=== PATIENT | male | born 1975 | race Caucasian/White ===

== ENCOUNTER 2020-10-14 13:00 | Emergency (ER) | payer OTHER ==
[~2020-10-14] VITALS: Ht 188 cm; Wt 118.2 kg
[2020-10-14] MEDS ORDERED: fentaNYL PF VIAL 100 MCG/2 ML VIAL IVP ONE (13:15)
[2020-10-14] MEDS ORDERED: METOCLOPRAMIDE HCL 10 MG/2 ML VIAL. IVP ONE (13:15)
[2020-10-14] MEDS ORDERED: IV NORMAL SALINE 500ML BAG 500 ML IV ONE (13:15)
[2020-10-14] MEDS ORDERED: ASPIRIN CHEWABLE 81 MG TABLET. PO ONE (13:15)
[2020-10-14] MEDS ORDERED: ONDANSETRON PF 4 MG/2 ML VIAL. ONE (13:18)
[2020-10-14 13:29] LABS: BASO # 0.1 x10^3/uL (0.0-0.2); BASO % 1 % (0-3); EOS # 0.2 x10^3/uL (0.0-0.7); EOS % 1 % (0-3); HEMATOCRIT 49.7 % (39.0-53.0); HEMOGLOBIN 17.5 g/dL (13.0-17.5); LYMPH # 2.5 x10^3/uL (1.0-4.8); LYMPH % 20 % (24-48); MEAN CORPUSCULAR HEMOGLOBIN 31 pg (25-35); MEAN CORPUSCULAR HGB CONC 35 g/dL (31-37); MEAN CORPUSCULAR VOLUME 87 fL (79-100); MONO % 8 % (0-9); NEUT # 8.5 x10^3/uL (1.8-7.7); NEUT % 69 % (31-73); PLATELET COUNT 402 x10^3/uL (140-400); RED BLOOD COUNT 5.69 x10^6/uL (4.30-5.70); RED CELL DISTRIBUTION WIDTH 13.3 % (11.5-14.5); WHITE BLOOD COUNT 12.3 x10^3/uL (4.0-11.0)
[2020-10-14 13:38] LABS: PROTHROMBIN TIME PATIENT 13.1 SEC (11.7-14.0)
[2020-10-14 13:41] LABS: D-DIMER 0.48 ug/mlFEU (0.00-0.50)
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
[2020-10-14] MEDS ORDERED: MECLIZINE HCL 12.5 MG TABLET. PO ONE (13:45)
[2020-10-14] MEDS ORDERED: ONDANSETRON PF 4 MG/2 ML VIAL. IVP ONE (13:45)
--- NOTE | 2020-10-14 13:49 | RAD ---
AP chest. HISTORY: Chest pain AP view was taken of the chest. There is no pneumothorax or pleural effusion. There is elevation of t he right diaphragm. Heart is normal in size without heart failure. IMPRESSION: 1. Elevated right diaphragm. 2. No acute infiltrates. Electronically signed by: Kenny Wallis MD (10/14/2020 1:47 PM) [facility]
[2020-10-14 13:50] LABS: ALBUMIN 4.2 g/dL (3.4-5.0); ALBUMIN/GLOBULIN RATIO 1.2 (1.0-1.7); CALCIUM 9.3 mg/dL (8.5-10.1); CREATININE 1.2 mg/dL (0.7-1.3); GFR 66.1; MAGNESIUM 2.2 mg/dL (1.8-2.4); TOTAL BILIRUBIN 0.6 mg/dL (0.2-1.0); TOTAL PROTEIN 7.8 g/dL (6.4-8.2)
--- NOTE | 2020-10-14 14:04 | EKG ---
[facility] [address] [place] [address] Test Date: 2020-10-14 Test Time: 13:49:37 Pat Name: LINDA SEAMAN Department: Room: Gender: M Phytopathologist: : 1975 Requested By: BARBARA RODRIGUEZ Order Number: [id number] Reading MD: Measurements Intervals [place] Rate: 60 P: 46 [place]: 166 QRS: 39 QRSD: 96 T: 10 QT: 434 QTc: 434 Interpretive Statements SINUS RHYTHM NORMAL ECG RI6.01 Compared to ECG 10/14/2020 13:09:26 No significant changes
--- NOTE | 2020-10-14 14:04 | EKG ---
[facility] [address] [place] [address] Test Date: 2020-10-14 Test Time: 13:09:26 Pat Name: LINDA SEAMAN Department: Room: Gender: M Manager Fiber: : 1975 Requested By: BARBARA RODRIGUEZ Order Number: [id number] Reading MD: Measurements Intervals [place] Rate: 80 P: 34 [place]: 156 QRS: 45 QRSD: 92 T: 14 QT: 370 QTc: 430 Interpretive Statements SINUS RHYTHM NORMAL ECG RI6.01 No previous ECG available for comparison
[2020-10-14 14:40] LABS: POTASSIUM 3.6 mmol/L (3.5-5.1)
[2020-10-14] MEDS ORDERED: IOHEXOL 350 MG/ML 100 ML VIAL. IV ONE (15:00)
[2020-10-14] MEDS ORDERED: CONTRAST GIVEN. MC PRN (15:00)
--- NOTE | 2020-10-14 15:17 | RAD ---
Study: CT CHEST WITH CONTRAST - PULMONARY ANGIOGRAM History: Chest pain. Comparison: None. Technique: Helical CT of the chest performed after the administration of 100 cc Omnipaque 350 intrav enous contrast and timed for angiographic evaluation of the pulmonary arteries per PE protocol. Coron al and sagittal 3D MIP reformations were obtained. One or more of the following individualized dose reduction techniques were utilized for this examinat ion: 1. Automated exposure control 2. Adjustment of the mA and/or kV according to patient size 3. Use of iterative reconstruction technique. Findings: Pulmonary Arteries: No main, lobar or segmental pulmonary embolism. Normal main pulmonary artery jigar courtney. Heart/Systemic Vasculature: Normal aortic transverse dimension. No dissection. The visualized great v essels are patent. Mediastinum: No mediastinal or hilar adenopathy. No pericardial effusion. Small fat-containing paraes ophageal hernia, image 114 series 3. Lungs: Asymmetric elevation of the right hemidiaphragm with overlying volume loss. No confluent airsp maricel infiltrate. No pleural effusion or pneumothorax. Patent central airways. A few tiny pulmonary nod ules such as at the right lung apex, image 46 series 3, not meeting size criteria for dedicated follo w-up per Fleischner guidelines. Neck/Axilla/Body Wall: Unremarkable visualized thyroid. No axillary adenopathy. Upper Abdomen: Within normal limits. Bones: No acute or aggressive osseous process. Mild upper thoracic levocurvature. Miscellaneous: None. IMPRESSION: 1. No pulmonary embolism or other acute abnormality seen to account for the patient's chest pain. 2. Asymmetric elevation of the right hemidiaphragm with mild overlying volume loss Electronically signed by: LUI BERG MD (10/14/2020 3:15 PM) [facility] [place]
[2020-10-14 15:51] LABS: BILIRUBIN,URINE NEGATIVE (NEG); NITRITE,URINE NEGATIVE (NEG); PH,URINE 6.5 (<5.0-8.0); PROTEIN,URINE NEGATIVE (NEG-TRACE); UROBILINOGEN,URINE 0.2 mg/dL (0.2 mg/dL)
[2020-10-14 15:56] LABS: BARBITURATES NEG (NEG); BENZODIAZEPINES NEG (NEG); CANNABINOIDS NEG (NEG); COCAINE NEG (NEG); METHADONE NEG (NEG); OPIATES NEG (NEG); PHENCYCLIDINE NEG (NEG)
[2020-10-14 16:00] LABS: CLARITY,URINE CLEAR; COLOR,URINE YELLOW
[2020-10-14 16:01] LABS: AMPHETAMINE/METHAMPHETAMINE POS (NEG); BACTERIA,URINE 0 /HPF (0-FEW); RBC,URINE 0 /HPF (0-2); WBC,URINE 0 /HPF (0-4)
[2020-10-14 17:28] VITALS: BP 141/89
[2020-10-14] MEDS ORDERED: cefTRIAXone IV Push 1 GM VIAL. IVP ONE (17:45)
[2020-10-14] MEDS ORDERED: MECL-75 PO (17:56)
[2020-10-14] MEDS ORDERED: ONDA4TAB12 PO (17:56)
== END 2020-10-14 18:00 | disposition home or self-care (01) ==
LOC: ER 13:00
DX: R07.89 Other chest pain (principal); H81.10 Benign paroxysmal vertigo, unspecified ear; K21.9 Gastro-esophageal reflux disease without esophagitis; E78.00 Pure hypercholesterolemia, unspecified; E03.9 Hypothyroidism, unspecified; G43.909 Migraine, unspecified, not intractable, without status migrainosus; F43.10 Post-traumatic stress disorder, unspecified; Z90.89 Acquired absence of other organs
CPT/HCPCS: 36415; 71045; 71275; 80053; 80307; 81001; 83735; 83880; 84484; 85025; 85379; 85610; 93005; 96361; 96374; 96375; 99285; J2405; J2765; J3010; J7040; J8597; Q9967